=== PATIENT | female | born 1950 | race Caucasian/White ===

== ENCOUNTER → 2017-01-08 | Outpatient (CLI) | payer BC ==
[2016-06-21 07:49] VITALS: BP 141/73
[~2017-01-08] MED LIST: BENZ100C15 PO; CIPR500T94 PO; DULO60CA44 PO; FLUT16SP21 NS; HYDR-2762 PO; IBUP800T19 PO; METR500T PO; OMEP40CA2 PO; PREG150C PO; SIMV40TA3 PO; SUCR1ORA5 PO; ZOLP10TA PO
--- NOTE | 2017-01-12 13:37 | RAD ---
EXAM: DIGITAL SCREEN BILAT W/CAD. HISTORY: Screening. COMPARISON: Screening mammogram from [facility] 01/24/2011 which does not include the left CC view. FINDINGS: Digital mammography was performed. Computer-aided detection (CAD) was utilized. The breast parenchyma is heterogeneously dense, which could reduce sensitivity of mammography (tissue density C). No dominant suspicious mass, suspicious microcalcifications, or architectural distortion is identified. Several benign-appearing calcifications are present in both breasts. IMPRESSION: No mammographic evidence of malignancy. BI-RADS CATEGORY: 2 BENIGN FINDING(S) RECOMMENDED FOLLOW-UP: 12M 12 MONTH FOLLOW-UP PQRS compliance statement: Patient information was entered into a reminder system with a target due date for the next mammogram. Mammography is a sensitive method for finding small breast cancers, but it does not detect them all and is not a substitute for careful clinical examination. A negative mammogram does not negate a clinically suspicious finding and should not result in delay in biopsying a clinically suspicious abnormality. "Our facility is accredited by the [employer] Mammography Program."
== END | disposition home or self-care (01) ==
LOC: MAMMO 14:41
PROVIDERS: ATTEND Nurse Practitioner Adult Health
DX: Z12.31 Encounter for screening mammogram for malignant neoplasm of breast (principal)
CPT/HCPCS: G0202; 77067

== ENCOUNTER → 2018-03-10 | Outpatient (CLI) | payer MEDICARE ==
[2016-06-21 07:49] VITALS: BP 141/73
[~2018-03-10] MED LIST changes: +BENZ-8 PO; -BENZ100C15 PO
--- NOTE | 2018-03-10 16:23 | RAD ---
Pelvic ultrasound, 03/10/2018: HISTORY: Right lower quadrant pain Transabdominal and transvaginal scans were obtained. The uterus is surgically absent. The right ovary measures 4.4 x 3.9 x 2.7 cm. It is largely replaced by a 4.2 cm septated cystic process. The septae are mildly thickened. There is color flow in the presumed septae. A cluster of ovarian cyst could also give this appearance. Correlation with a CT study from 06/19/2016 shows a similar low-density right ovarian mass measuring 4.2 cm in craniocaudad extent. The left ovary measures 2.3 x 2.7 x 2.0 cm. It contains multiple small simple cysts. The largest of these measures 1.2 cm. There is blood flow in the left ovary. No other pelvic mass is seen. No free fluid is evident in the pelvis. IMPRESSION: 1. Status post hysterectomy. 2. Small simple cysts in the left ovary. 3. Septated cystic right ovarian lesion suggesting a cystadenoma, although cystadenocarcinoma cannot be excluded. Its lack of definite change since the 06/19/2016 CT study favors a benign etiology. Further sonographic surveillance is suggested. Electronically signed by: Lyle Gipson MD (03/10/2018 4:19 PM) [facility]
== END | disposition home or self-care (01) ==
LOC: US 09:57
PROVIDERS: ATTEND Family Medicine
DX: N83.291 Other ovarian cyst, right side (principal); N83.292 Other ovarian cyst, left side; Z90.710 Acquired absence of both cervix and uterus; Z79.899 Other long term (current) drug therapy
CPT/HCPCS: 76830; 76856

== ENCOUNTER 2018-11-16 09:26 | Emergency (ER) | payer MEDICARE ==
[~2018-11-16] VITALS: Ht 168.9 cm; Wt 89.0 kg
[~2018-11-16 09:26] MED LIST changes: -HYDR-2762 PO; +HYDR-2765 PO
[2018-11-16] MEDS ORDERED: IV NORMAL SALINE 1,000ML 1,000 ML IV ONE (10:00)
--- NOTE | 2018-11-16 10:06 | PHYS DOC ---
Past History Past Medical History: Depression, GERD, High Cholesterol, Other Past Surgical History: Hysterectomy, Other Alcohol Use: Occasionally Drug Use: None Adult General Chief Complaint Chief Complaint: CONSTIPATION HPI HPI 68-year-old female presents with constipation. The patient states she has not had a bowel movement in one week. She went to her PCPs office 2 days ago and he recommended Dulcolax and an enema. She did take 4 Ducolax pills on Wednesday. Yesterday she did an enema, 1 dose of MiraLAX, and 2 more Dulcolax. She has diffuse abdominal pain and cramping. She has developed low back pain this morning. Patient denies nausea or vomiting. He is only been eating a liquid diet the last 2 days. The patient drinks less than 24 ounces of water per day. She has had flatulence. She denies fever or chills. Review of Systems Review of Systems Constitutional: Denies fever or chills [] Eyes: Denies change in visual acuity, redness, or eye pain [] HENT: Denies nasal congestion or sore throat [] Respiratory: Denies cough or shortness of breath [] Cardiovascular: No additional information not addressed in HPI [] GI: Abdominal pain,[] : Denies dysuria or hematuria [] Musculoskeletal: Low back pain[] Integument: Denies rash or skin lesions [] Neurologic: Denies headache, focal weakness or sensory changes [] Endocrine: Denies polyuria or polydipsia [] All other systems were reviewed and found to be within normal limits, except as documented in this note. Current Medications Current Medications Current Medications Medications (Trade) Dose Ordered Sig/[place] Start Time Stop Time Status Last Admin Dose Admin Sodium Chloride 1,000 ml @ 1,000 mls/hr 1X ONCE 11/16/18 10:00 11/16/18 10:59 UNV Allergies Allergies Allergies Coded Allergies Type Severity Reaction Last Updated Verified oxaprozin Allergy Intermediate 11/16/18 Yes Physical Exam Physical Exam Constitutional: Well developed, well nourished, no acute distress, non-toxic appearance. [] HENT: Normocephalic, atraumatic, bilateral external ears normal, oropharynx moist, no oral exudates, nose normal. [] Eyes: PERRLA, EOMI, conjunctiva normal, no discharge. [] Neck: Normal range of motion, no tenderness, supple, no stridor. [] Cardiovascular:Heart rate regular rhythm, no murmur [] Lungs & Thorax: Bilateral breath sounds clear to auscultation [] Abdomen: Diffuse tenderness with guarding.[] Skin: Warm, dry, no erythema, no rash. [] Back: No tenderness, no CVA tenderness. [] Extremities: No tenderness, no cyanosis, no clubbing, ROM intact, no edema. [] Neurologic: Alert and oriented X 3, normal motor function, normal sensory function, no focal deficits noted. [] Psychologic: Affect normal, judgement normal, mood normal. [] Current Patient Data Vital Signs Vital Signs Date Time Temp Pulse Resp B/P (MAP) Pulse Ox O2 Delivery O2 Flow Rate FiO2 11/16/18 09:34 98.2 101 18 98 Room Air EKG EKG [] Radiology/Procedures Radiology/Procedures [] Impressions: KUB, 11/16/2018: HISTORY: Abdominal pain, constipation There is retained barium predominantly in the descending colon and sigmoid colon from a previous upper GI exam. Diverticula are evident in the sigmoid region. Gas is present in other loops of large and small bowel in a nonspecific pattern. There is no evidence organomegaly. Scattered degenerative changes are present in the spine. IMPRESSION: 1. Retained barium in the left colon from a recent upper GI exam. 2. Colonic diverticulosis. Electronically signed by: Lyle Gipson MD (11/16/2018 10:45 AM) [facility] DICTATED AND SIGNED BY: LYLE GIPSON MD DATE: 11/16/18 1045 CC: GISELLE BONILLA DO; EDITH GARIBAY MD ~ Course & Med Decision Making Course & Med Decision Making Pertinent Labs and Imaging studies reviewed. (See chart for details) His labs are unremarkable. Her KUB does show stool in the descending colon. We gave one bottle of magnesium citrate. She did not have a stool in the ED. She will likely have a stool next 12 hours. She is stable for discharge at this time. [] Dragon Disclaimer Dragon Disclaimer This electronic medical record was generated, in whole or in part, using a voice recognition dictation system. Departure Departure: Impression: Primary Impression: Constipation by delayed colonic transit Additional Impression: Diverticulosis Disposition: 01 HOME, SELF-CARE Condition: STABLE Referrals: EDITH GARIBAY MD (PCP) Patient Instructions: Constipation, Adult, [id number] Problem Qualifiers GISELLE BONILLA DO Nov 16, 2018 10:06
[2018-11-16] MEDS ORDERED: KETOROLAC 30 MG/ML VIAL. IV ONE (10:15)
[2018-11-16 10:16] LABS: BASO % 1 % (0-3); EOS % 0 % (0-3); HEMATOCRIT 43.6 % (36.0-47.0); HEMOGLOBIN 14.4 g/dL (12.0-15.5); LYMPH # 0.6 x10^3/uL (1.0-4.8); LYMPH % 8 % (24-48); MEAN CORPUSCULAR HEMOGLOBIN 30 pg (25-35); MEAN CORPUSCULAR HGB CONC 33 g/dL (31-37); MEAN CORPUSCULAR VOLUME 90 fL (79-100); MONO # 0.5 x10^3/uL (0.0-1.1); MONO % 7 % (0-9); NEUT # 6.2 x10^3uL (1.8-7.7); NEUT % 84 % (31-73); PLATELET COUNT 173 x10^3/uL (140-400); RED BLOOD COUNT 4.86 x10^6/uL (3.50-5.40); RED CELL DISTRIBUTION WIDTH 15.4 % (11.5-14.5); WHITE BLOOD COUNT 7.3 x10^3/uL (4.0-11.0)
[2018-11-16] MEDS ORDERED: IOHEXOL 300 MG/ML 75 ML VIAL. IV ONE (10:45)
--- NOTE | 2018-11-16 10:49 | RAD ---
BENITO, 11/16/2018: HISTORY: Abdominal pain, constipation There is retained barium predominantly in the descending colon and sigmoid colon from a previous upper GI exam. Diverticula are evident in the sigmoid region. Gas is present in other loops of large and small bowel in a nonspecific pattern. There is no evidence organomegaly. Scattered degenerative changes are present in the spine. IMPRESSION: 1. Retained barium in the left colon from a recent upper GI exam. 2. Colonic diverticulosis. Electronically signed by: Lyle Gipson MD (11/16/2018 10:45 AM) [facility]
[2018-11-16 11:01] LABS: ALBUMIN 3.2 g/dL (3.4-5.0); ALBUMIN/GLOBULIN RATIO 0.9 (1.0-1.7); CALCIUM 8.6 mg/dL (8.5-10.1); CREATININE 0.7 mg/dL (0.6-1.0); GFR 83.7; TOTAL BILIRUBIN 0.7 mg/dL (0.2-1.0); TOTAL PROTEIN 6.6 g/dL (6.4-8.2)
[2018-11-16] MEDS ORDERED: ONDANSETRON PF 4 MG/2 ML VIAL. IV ONE (11:30)
[2018-11-16] MEDS ORDERED: MAGNESIUM CITRATE 296 ML SOLUTION. PO ONE (11:30)
[2018-11-16 13:53] VITALS: BP 138/83
== END 2018-11-16 13:56 | disposition home or self-care (01) ==
LOC: ER 09:26
DX: K57.30 Diverticulosis of large intestine without perforation or abscess without bleeding (principal); K59.01 Slow transit constipation; F32.9 Major depressive disorder, single episode, unspecified; K21.9 Gastro-esophageal reflux disease without esophagitis; E78.00 Pure hypercholesterolemia, unspecified; Z90.710 Acquired absence of both cervix and uterus; Z88.8 Allergy status to other drugs, medicaments and biological substances
CPT/HCPCS: 99284; J1885; J2405; 36415; 74018; 80053; 85025; 96361; 96374; 96375; J7030

== ENCOUNTER 2018-11-18 09:12 | Inpatient (IN) | payer MEDICARE ==
[~2018-11-18] VITALS: Ht 167.6 cm; Wt 80.5 kg
[2018-11-18 09:40] VITALS: BP 125/72
[2018-11-18 10:00] LABS: BASO # 0.1 x10^3/uL (0.0-0.2); BASO % 1 % (0-3); EOS % 0 % (0-3); HEMATOCRIT 40.7 % (36.0-47.0); HEMOGLOBIN 13.6 g/dL (12.0-15.5); LYMPH # 0.5 x10^3/uL (1.0-4.8); LYMPH % 4 % (24-48); MEAN CORPUSCULAR HEMOGLOBIN 30 pg (25-35); MEAN CORPUSCULAR HGB CONC 33 g/dL (31-37); MEAN CORPUSCULAR VOLUME 90 fL (79-100); MONO # 1.4 x10^3/uL (0.0-1.1); MONO % 10 % (0-9); NEUT # 11.6 x10^3uL (1.8-7.7); NEUT % 85 % (31-73); PLATELET COUNT 203 x10^3/uL (140-400); RED BLOOD COUNT 4.54 x10^6/uL (3.50-5.40); RED CELL DISTRIBUTION WIDTH 15.1 % (11.5-14.5); WHITE BLOOD COUNT 13.6 x10^3/uL (4.0-11.0)
[2018-11-18 10:18] LABS: ALBUMIN 3.4 g/dL (3.4-5.0); ALBUMIN/GLOBULIN RATIO 0.9 (1.0-1.7); CALCIUM 8.8 mg/dL (8.5-10.1); CREATININE 0.8 mg/dL (0.6-1.0); GFR 71.8; POTASSIUM 4.5 mmol/L (3.5-5.1); TOTAL BILIRUBIN 0.7 mg/dL (0.2-1.0); TOTAL PROTEIN 7.1 g/dL (6.4-8.2)
[2018-11-18] MEDS: IV 1/2 NORMAL SALINE 1,000 ML IV SCH ×2 (10:36→20:04)
[2018-11-18] MEDS: KETOROLAC 30 MG/ML VIAL. IV PRN ×2 (10:37→17:42)
--- NOTE | 2018-11-18 10:53 | RAD ---
BENITO, 11/18/2018: HISTORY: Constipation Comparison is made to a study from 11/16/2018. There is retained contrast throughout the colon extending from the cecum to the distal sigmoid. The amount of contrast has increased suggesting an additional interval contrast exam. Multiple colonic diverticula are evident, most numerous in the sigmoid region. Gas is present in small bowel loops in a nonspecific pattern. There is no evidence organomegaly. IMPRESSION: 1. Increasing retained contrast throughout the colon. 2. Colonic diverticulosis. Electronically signed by: Lyle Gipson MD (11/18/2018 10:50 AM) [facility]
[2018-11-18] MEDS ORDERED: CALC200T3 PO (11:43)
[2018-11-18] MEDS ORDERED: RANI150T21 PO (11:43)
--- NOTE | 2018-11-18 11:44 | NUR ---
NSG NOTE; ADMISSION DIRECT ADMIT TO ROOM 119 AT 0930 VIA W/C ACCOMP BY . FROM DR GARIBAY'S OFFICE C/O INCREASING CONSTIPATION, BLOATING ABD PAIN X 8 DAYS. LBM 11/08
[2018-11-18 13:07] LABS: BILIRUBIN,URINE NEG (NEG); CLARITY,URINE HAZY; COLOR,URINE YELLOW; GLUCOSE,URINE NEG (NEG)
[2018-11-18 13:08] LABS: BACTERIA,URINE FEW /HPF (0-FEW); GRANULAR CASTS,URINE OCC /HPF; HYALINE CASTS, URINE OCC /HPF; NITRITE,URINE NEG (NEG); SQUAMOUS EPITHELIAL CELL,UR MANY /LPF; UROBILINOGEN,URINE 0.2 mg/dL (0.2 mg/dL)
[2018-11-18] MEDS: ONDANSETRON PF 4 MG/2 ML VIAL. IV PRN ×2 (13:11→20:04)
[2018-11-18 15:25] VITALS: BP 132/77
--- NOTE | 2018-11-18 19:31 | HP ---
ADMIT DATE: 11/18/2018 HISTORY OF PRESENT ILLNESS: A 68-year-old female in with exacerbation of abdominal pain. She has been having this for some time. She has been in and out of the Emergency Room and unable to get any help. White count was elevated at 13,000. Some nausea, no vomiting, but unable have a bowel movement for the last week. The patient is also markedly dehydrated. As a result of this, the patient was admitted to the hospital for further evaluation and treatment of her bowel obstruction and obstipation at least, unable to do CT scan because of barium. PAST MEDICAL HISTORY: Hypercholesterolemia, history of diverticulitis, abdominal surgery, gastric fundoplication, pancreatic surgery, GERD, hysterectomy, fibromyalgia, orthopedic knee surgery, joint replacement, depression. The patient has also had diphtheria tetanus and pneumococcal vaccinations are up-to-date. FAMILY HISTORY: Peripheral vascular disease in brother. Mother with osteoporosis. Brother with hypertension as well as the father and mother. Stroke in the father, the father has also had problems with stroke. ALLERGIES: OXAPROZIN. MEDICATIONS: Listed in the reconciliation note and noted hose were for them including Zocor, Lyrica one tablet b.i.d., calcium and Zantac. The patient is a full code. SOCIAL HISTORY: Denies smoking, alcohol or drug use. REVIEW OF SYSTEMS: The patient denies any headaches, visual change, blurred vision, double vision. Denies any melena, hematochezia, or hematemesis. Neurologically, the patient was alert and oriented x 3. PHYSICAL EXAMINATION: GENERAL: Pleasant white female, moderate amount of pain. VITAL SIGNS: Blood pressure 125/72, respiratory rate 18, pulse 110, afebrile, oxygen saturation good. HEENT: The patient's head was atraumatic, normocephalic. Eyes: PERRLA without jaundice. Mouth and throat were normal. NECK: Supple, no JVD or thyromegaly. LUNGS: Diminished throughout, poor movement of air. CARDIOVASCULAR: Regular sinus rhythm, S1, S2, without murmur, rub, thrill, or extra heart sound. ABDOMEN: Soft, diffuse, bloated, but tenderness in the left lower quadrant area, but no rebounding or guarding. Positive bowel sounds, no hepatosplenomegaly. EXTREMITIES: No clubbing, cyanosis, or edema. The rectal vault was negative for stool. NEUROLOGIC: The patient was alert and oriented x 3. pericardial nerves 2-12 are grossly intact. PLAN: The patient will be admitted for further evaluation of bowel obstruction, possible obstipation, constipation. We will need to try to get her evacuate before we can do a CT scan of her abdomen and pelvis. IMPRESSION: As noted above. Also, dehydration. EDITH GARIBAY MD DR: MARISELA/ana laura JOB#: [id number] / [id number]
[2018-11-18 20:05] VITALS: BP_SYST 147; BP_SYST 47; BP_DIAS 76
[2018-11-18 23:10] VITALS: BP 160/82
[2018-11-18] MEDS ORDERED: SODIUM PHOSPHATES 19/7GM 133 ML ENEMA. PR ONE (23:45)
[2018-11-19] MEDS: KETOROLAC 30 MG/ML VIAL. IV PRN ×2 (00:56→09:27)
[2018-11-19 05:35] VITALS: BP 126/76
[2018-11-19] MEDS: IV 1/2 NORMAL SALINE 1,000 ML IV SCH ×2 (05:45→15:45)
[2018-11-19 07:49] LABS: BASO % 1 % (0-3); EOS % 0 % (0-3); HEMATOCRIT 35.5 % (36.0-47.0); LYMPH # 0.5 x10^3/uL (1.0-4.8); LYMPH % 5 % (24-48); MEAN CORPUSCULAR HEMOGLOBIN 30 pg (25-35); MEAN CORPUSCULAR HGB CONC 34 g/dL (31-37); MEAN CORPUSCULAR VOLUME 89 fL (79-100); MONO # 0.9 x10^3/uL (0.0-1.1); MONO % 10 % (0-9); NEUT % 84 % (31-73); PLATELET COUNT 187 x10^3/uL (140-400); RED BLOOD COUNT 3.99 x10^6/uL (3.50-5.40); RED CELL DISTRIBUTION WIDTH 15.2 % (11.5-14.5); WHITE BLOOD COUNT 9.5 x10^3/uL (4.0-11.0)
[2018-11-19] MEDS: ONDANSETRON PF 4 MG/2 ML VIAL. IV PRN (09:26)
[2018-11-19 10:59] VITALS: BP 128/68
[2018-11-19] MEDS ORDERED: ZOLPIDEM 5 MG TABLET. PO PRN (14:15)
[2018-11-19 15:31] VITALS: BP 115/83
[2018-11-19] MEDS ORDERED: miSOPROStol 100 MCG TABLET PO ONE (16:00)
[2018-11-19] MEDS: PREGABALIN 75 MG CAPSULE PO SCH ×2 (16:39→21:26)
[2018-11-19] MEDS: metroNIDAZOLE 500 MG TABLET PO SCH ×2 (16:39→21:26)
[2018-11-19] MEDS: miSOPROStol 100 MCG TABLET PO SCH ×2 (18:41→23:02)
[2018-11-19 21:04] VITALS: BP 120/59
[2018-11-19] MEDS ORDERED: SODIUM PHOSPHATES 19/7GM 133 ML ENEMA. PR ONE (22:00)
--- NOTE | 2018-11-19 22:16 | PN ---
DATE: 11/19/2018 SUBJECTIVE: The patient still with abdominal pain, having trouble getting enemas as well as mineral oil for the patient. Still having abdominal pain. Had a low grade temperature of 99.1, started her on IV Flagyl. The patient otherwise still complaining of abdominal pain. She had small results with the multiple laxatives that we have given her. She is probably impacted, otherwise. OBJECTIVE: VITAL SIGNS: Blood pressure 115/83, respiratory rate 20, pulse of 105. LUNGS: Clear. CARDIOVASCULAR: Stable. ABDOMEN: Soft, but definite tenderness in that transverse and descending colon. PLAN: We will go ahead and continue with IV fluids, IV antibiotic therapy and make further evaluation on her and try to continue with Fleet Enema or soapsuds enemas; however, we can get those into the patient. EDITH GARIBAY MD DR: MARISELA/ana laura JOB#: [id number] / [id number]
[2018-11-19] MEDS ORDERED: CALCIUM CARBONATE 500 MG TAB.CHEW PO PRN (23:15)
[2018-11-20] MEDS: IV 1/2 NORMAL SALINE 1,000 ML IV SCH ×3 (04:10→21:34)
[2018-11-20] MEDS: metroNIDAZOLE 500 MG TABLET PO SCH ×3 (05:56→21:35)
[2018-11-20] MEDS: ONDANSETRON PF 4 MG/2 ML VIAL. IV PRN ×2 (06:35→17:56)
[2018-11-20 06:54] VITALS: BP 79/99
[2018-11-20] MEDS: PREGABALIN 75 MG CAPSULE PO SCH ×2 (09:00→19:47)
[2018-11-20] MEDS ORDERED: MAG HYDROX/AL HYDROX/SIMETH 30 ML ORAL.SUSP PO PRN (10:00)
[2018-11-20] MEDS: miSOPROStol 100 MCG TABLET PO SCH ×4 (10:16→19:47)
[2018-11-20] MEDS: LACTOBACILLUS RHAMNOSUS GG 1 CAPSULE. PO SCH ×2 (10:16→19:46)
[2018-11-20] MEDS: KETOROLAC 30 MG/ML VIAL. IV PRN ×2 (10:17→18:28)
[2018-11-20 10:41] VITALS: BP 107/66
[2018-11-20 14:48] VITALS: BP 111/72
[2018-11-20] MEDS ORDERED: MAGNESIUM CITRATE 296 ML SOLUTION. PO ONE (17:00)
[2018-11-20 19:36] VITALS: BP 136/73
--- NOTE | 2018-11-20 21:05 | PN ---
DATE: SUBJECTIVE: A 68-year-old female in for her bowel obstruction, obstipation. The patient's abdomen still shows a large amount of retained barium in her colon. She is having abdominal pain, although she is passing a little bit of gas and despite the use of multiple enemas, she has only had very small amount of stool. We will give her some mineral oil and also give her some castor oil. The patient was running a temperature that is afebrile now. OBJECTIVE: VITAL SIGNS: Blood pressure 120/60, respiratory rate 20, pulse 95. Presently afebrile. GENERAL: The patient is alert and oriented. LUNGS: Clear. CARDIOVASCULAR: Regular sinus rhythm. ABDOMEN: Soft. There is definite bowel sounds noted, much more active than they have been. EXTREMITIES: No clubbing, cyanosis, or edema. NEUROLOGIC: Intact. IMPRESSION: Therefore of bowel obstruction, obstipation, possible diverticulitis. PLAN: Continue with IV antibiotic therapy, mineral oil, castor oil, enemas as needed. She also has bad case of GERD. We will continue to monitor on that as well. EDITH GARIBAY MD DR: MARISELA/ana laura JOB#: [id number] / [id number]
[2018-11-20] MEDS ORDERED: BISACODYL TAB 5 MG TABLET.DR. PO ONE (21:45)
[2018-11-20 22:36] VITALS: BP 129/75
[2018-11-21] MEDS: metroNIDAZOLE 500 MG TABLET PO SCH (04:55)
[2018-11-21 06:09] VITALS: BP 152/77
[2018-11-21] MEDS: IV 1/2 NORMAL SALINE 1,000 ML IV SCH (06:09)
[2018-11-21] MEDS: ONDANSETRON PF 4 MG/2 ML VIAL. IV PRN (08:47)
[2018-11-21] MEDS: KETOROLAC 30 MG/ML VIAL. IV PRN (08:47)
[2018-11-21] MEDS: miSOPROStol 100 MCG TABLET PO SCH (09:00)
[2018-11-21] MEDS: LACTOBACILLUS RHAMNOSUS GG 1 CAPSULE. PO SCH (09:00)
[2018-11-21] MEDS: PREGABALIN 75 MG CAPSULE PO SCH (09:00)
--- NOTE | 2018-11-21 10:56 | NUR ---
NSG NOTE; TRANSFER TO [facility] AT 1055 VIA CART ACCOMP BY EMS PERSONNEL REPORT CALLED TO RN PT NEEDS GI CONSULT
--- NOTE | 2018-12-08 09:09 | DS ---
DATE OF DISCHARGE: 11/21/2018 HOSPITAL COURSE: A 68-year-old female came in with severe abdominal pain. The patient's CT scan demonstrated a form of colitis. This was done as initially as an outpatient. She was treated as an outpatient; however, she became increasingly worse. The patient was admitted for IV antibiotic therapy and the like. The patient did not make much progress. Her previous scans had showed she had severe moderately extensive diverticular disease seen associated with the sigmoid colon and the like. She was placed on metronidazole. She was given variety of laxatives because she was also constipated. The patient otherwise was transferred down to [place] because we did have GI consult coverage here at this facility, so she was transferred down there for over a GI consult because of the continued abdominal pain and the like. She also had a low grade temperature and it was another reason to put her on the IV antibiotic therapy. In any case, she made good progress here. She was stable and then transferred down to [facility]. IMPRESSION: Therefore, colitis of the large bowel, constipation, abdominal pain. See MRAD and transfer her as indicated down to [facility]. EDITH GARIBAY MD DR: MARISELA/ana laura JOB#: [id number] / [id number]
== END 2018-11-21 10:55 | disposition short-term general hospital (02) | DRG 389 ==
LOC: 1 SOUTH 09:12
PROVIDERS: ADMIT Family Medicine; ATTEND Family Medicine
DX: K56.609 Unspecified intestinal obstruction, unspecified as to partial versus complete obstruction (principal); E87.1 Hypo-osmolality and hyponatremia; K57.92 Diverticulitis of intestine, part unspecified, without perforation or abscess without bleeding; M79.7 Fibromyalgia; K59.00 Constipation, unspecified; K21.9 Gastro-esophageal reflux disease without esophagitis; E78.00 Pure hypercholesterolemia, unspecified; F32.9 Major depressive disorder, single episode, unspecified; E86.0 Dehydration; Z82.49 Family history of ischemic heart disease and other diseases of the circulatory system; Z82.3 Family history of stroke; Z90.710 Acquired absence of both cervix and uterus; Z82.62 Family history of osteoporosis; Z88.8 Allergy status to other drugs, medicaments and biological substances
CPT/HCPCS: 36415; 74018; 80053; 81001; 83605; 83690; 84443; 85025; J1885; J2405; J7030

== ENCOUNTER 2019-02-05 16:46 | Emergency (ER) | payer OTHER, MEDICARE ==
[~2019-02-05 16:46] MED LIST changes: +CALC200T3 PO; +RANI-376 PO
[2019-02-05 17:07] VITALS: BP 130/75
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
== END 2019-02-05 17:40 | disposition home or self-care (01) ==
LOC: ER 16:46
DX: S80.01XA Contusion of right knee, initial encounter (principal); E78.00 Pure hypercholesterolemia, unspecified; Z96.651 Presence of right artificial knee joint; Z88.8 Allergy status to other drugs, medicaments and biological substances; V49.49XA Driver injured in collision with other motor vehicles in traffic accident, initial encounter; Y93.I9 Activity, other involving external motion; Y92.89 Other specified places as the place of occurrence of the external cause; Y99.8 Other external cause status
CPT/HCPCS: 73562; 99284

== ENCOUNTER 2020-05-03 11:43 | Emergency (ER) | payer OTHER, MEDICARE ==
[~2020-05-03] VITALS: Ht 168.9 cm; Wt 81.6 kg
[~2020-05-03 11:43] MED LIST changes: -DULO60CA44 PO; +DULO60CA98 PO; +SIMV40TA18 PO; -SIMV40TA3 PO
--- NOTE | 2020-05-03 11:49 | PHYS DOC ---
Past History Past Medical History: Diverticulitis, High Cholesterol Past Surgical History: Hysterectomy, Knee Replacement Alcohol Use: None Drug Use: None General Adult EDM: Chief Complaint: NEAR SYCOPE HPI: HPI: 69-year-old female past medical history significant for hyperlipidemia, diverticulitis and fibromyalgia, presents to the ED with complaints of near syncope while patient was at her eye clinic. Pt states she felt very hot and flushed, dizzy, was seeing spots and new she needs to sit down. She had not had any procedures or medications given but had blood drawn for "bacteria?." Pt states she recently saw her physician this week for a rash over her left cheek/face, unclear if rash is shingles versus superficial skin infection. Was started on a antiviral a few days ago and keflex yesterday. EMS reports her initial blood pressure was 60/30 with a heart rate in the upper 50s. Patient reports her blood pressure usually runs in the 50s or 60s. 200 cc of NS given prior to ED arrival. Pt with no potential on arrival. States she is at the eye clinic to evaluate if rash involved her eye. Father with history of coronary artery disease. No family history of sudden under the age of 50, connective tissue disorder, or aortic disease. Patient with no prior h/o cardiac disease. Had an unsuccessful stress test due to dizziness, ordered because of her family history. No h/o DVT/PT, recent surgery/immobilization/estrogen use. No head injury or vertigo. Had a cupcake and some water this morning. ROS: Denies any associated blurry vision, headache, neck stiffness, chest pain or pressure, hemoptysis, dyspnea, leg swelling. Review of Systems: Review of Systems: Constitutional: Denies fever or chills Eyes: Denies change in visual acuity HENT: Denies nasal congestion or sore throat Respiratory: Denies cough or shortness of breath Cardiovascular: Denies chest pain or edema GI: Denies abdominal pain, nausea, vomiting,or diarrhea : Denies dysuria, hematuria Musculoskeletal: Denies back pain or joint pain Integument: Denies rash Neurologic: Denies headache, focal weakness or sensory changes Endocrine: Denies polyuria or polydipsia Lymphatic: Denies swollen glands Psychiatric: Denies depression or anxiety Heart Score: Risk Factors: Risk Factors: DM, Current or recent (<one month) smoker, HTN, HLP, family history of CAD, obesity. Risk Scores: Score 0 - 3: 2.5% MACE over next 6 weeks - Discharge Home Score 4 - 6: 20.3% MACE over next 6 weeks - Admit for Clinical Observation Score 7 - 10: 72.7% MACE over next 6 weeks - Early Invasive Strategies Allergies: Allergies: Allergies Coded Allergies Type Severity Reaction Last Updated Verified oxaprozin Allergy Intermediate 11/16/18 Yes Physical Exam: PE: Constitutional: Well developed, well nourished, no acute distress, non-toxic appearance, normotensive on arrival HENT: Normocephalic, atraumatic, bilateral external ears normal, both TMs covered with cerumen, small patches of scabs over lateral left cheek, upper and outer left lip, nasal wing, normal mucous membranes Eyes: PERRLA, EOMI, conjunctiva normal, wood lamp exam of left eye shows no corneal uptake of fluorescein Neck: Normal range of motion, supple, ] Cardiovascular:Heart rate regular rhythm, no murmur [] Lungs & Thorax: Bilateral breath sounds clear to auscultation [] Abdomen: Bowel sounds normal, soft, no tenderness, no masses, no pulsatile masses. [] Skin: Warm, dry, no erythema, no rash. [] Back: No tenderness, Extremities: No tenderness, no cyanosis, no clubbing, ROM intact, no edema. [] Neurologic: Alert and oriented X 3, normal motor function, normal sensory function, no focal deficits noted. [] Psychologic: Affect normal, judgement normal, mood normal. [] EKG: EKG: Sinus rhythm at 58 bpm, no axis deviation, normal intervals, T wave inversion lead III, no ST elevations or ST depressions Radiology/Procedures: Radiology/Procedures: IMAGING REPORT Signed PATIENT: TEJAL HAYNES ACCOUNT: [id number] : 1950 LOCATION: ER AGE: 69 SEX: F EXAM STATUS: REG ER ORD. PHYSICIAN: BRIGIDA CALDERON DO REASON: near syncope PROCEDURE: PORTABLE CHEST 1V PORTABLE CHEST 1V History: Near syncope Comparison: April 02, 2015 Findings: Single view of the chest is submitted. There is no infiltrate, pneumothorax, or effusion. The pericardial cardiac silhouette is within normal limits in size. There is atherosclerotic calcification near aortic arch. There is degenerative change of the acromioclavicular joints bilaterally. Impression: 1. There is no radiographic evidence of acute cardiopulmonary disease. Electronically signed by: Beth Lo MD (05/03/2020 12:22 PM) [id number] DICTATED AND SIGNED BY: BETH LO MD DATE: 05/03/20 1222 CC: EDITH GARIBAY MD; BRIGIDA CALDERON DO ~ Impressions: Per Buckner syncope rule, Patient IS in the low-risk group for serious outcome. Course & Med Decision Making: Course & Med Decision Making Pertinent Labs and Imaging studies reviewed. (See chart for details) Concern for near syncope, suspect some mild/moderate dehydration given renal function. Patient reports she has had these symptoms once or twice in the past. Upon ED arrival is asymptomatic. Orthostatics negative. EKG unremarkable with normal troponin. Creatinine slightly elevated at 1.1. Will have patient recheck this with her primary care physician. Encouraged outpatient cardiology follow-up given her family history. Also encouraged ophthalmology follow-up. Strict ED return precautions were given for recurrence of symptoms, chest pain or shortness of breath. Encouraged urgent outpatient follow-up with PMD and cardiology work-up as an outpatient. Life-threatening processes were considered but are low suspicion at this time, given history and physical exam. Pt was educated on all prescription medications and adverse effects. All patient's questions were answered and pt was stable at time of discharge. Differential includes abdominal aortic aneurysm, aortic dissection, acute coronary syndrome, anemia, valvular disorder, cerebrovascular accident, drug overdose or toxidrome, arrhythmia, prolonged QT syndrome, hemorrhage, heat illness, intracranial hemorrhage, infection including meningitis/encephalitis/sepsis/toxic shock/myocarditis, vertebrobasilar insufficiency, seizure, medication adverse event, illicit drug use, electrolyte disorder I spoken with the patient and her caregivers. I explained the patient's condition, diagnoses and treatment plan based on the information available to me at this time. I have answered the patient and her caregiver's questions and addressed any concerns. The patient and her caregivers have a good understan ding of patient's diagnosis, condition and treatment plan as can be expected at this point. Vital signs have been stable. Patient's condition is stable and appropriate for discharge from the emergency department. Patient will pursue further outpatient evaluation with primary care physician or other designated or consulting physician as outlined in the discharge instructions. The patient and/or caregivers are agreeable to this plan of care and follow-up instructions have been explained in detail. The patient and/or caregivers have received these instructions in written form and have expressed an understanding of the discharge instructions. The patient and/or caregivers are aware that any significant change of condition or worsening of symptoms should prompt immediate return to this or the closest emergency department or call to 911. Mateo Disclaimer: Mateo Disclaimer: This electronic medical record was generated, in whole or in part, using a voice recognition dictation system. Departure Departure: Impression: Primary Impression: Near syncope Disposition: 01 HOME/RESIDENCE PRIOR TO ADM Condition: STABLE Referrals: EDITH GARIBAY MD (PCP) Have your renal function rechecked Patient Instructions: Near-Syncope Additional Instructions: [facility] [id number] [address] Justification of Admission: Justification of Admission: Justification of Admission Dx: N/A BRIGIDA CALDERON DO May 03, 2020 11:49
[2020-05-03] MEDS ORDERED: IV NORMAL SALINE 1,000ML 1,000 ML IV ONE (12:00)
--- NOTE | 2020-05-03 12:25 | RAD ---
PORTABLE CHEST 1V History: Near syncope Comparison: April 02, 2015 Findings: Single view of the chest is submitted. There is no infiltrate, pneumothorax, or effusion. The pericardial cardiac silhouette is within normal limits in size. There is atherosclerotic calcification near aortic arch. There is degenerative change of the acromioclavicular joints bilaterally. Impression: 1. There is no radiographic evidence of acute cardiopulmonary disease. Electronically signed by: Jim Sanchez MD (05/03/2020 12:22 PM) [id number]
[2020-05-03] MEDS ORDERED: FLUORESCEIN 1MG EYE STRIP. OS ONE (12:45)
--- NOTE | 2020-05-03 13:24 | EKG ---
[address] [address] Test Date: 2020-05-03 Test Time: 11:51:04 Pat Name: TEJAL HAYNES Department: Room: Gender: F Hotel Operations Manager: : 1950 Requested By: BRIGIDA CALDERON Order Number: [id number] Reading MD: Measurements Intervals [place] Rate: 58 P: 44 MS: 162 QRS: -19 QRSD: 76 T: 14 QT: 412 QTc: 408 Interpretive Statements SINUS RHYTHM LEFTWARD AXIS R-S TRANSITION ZONE IN V LEADS DISPLACED TO THE LEFT OTHERWISE NORMAL ECG RI6.02 No previous ECG available for comparison
[2020-05-03 13:27] LABS: BASO % 1 % (0-3); EOS # 0.1 x10^3/uL (0.0-0.7); EOS % 1 % (0-3); HEMATOCRIT 45.9 % (36.0-47.0); HEMOGLOBIN 14.8 g/dL (12.0-15.5); LYMPH # 0.8 x10^3/uL (1.0-4.8); LYMPH % 12 % (24-48); MEAN CORPUSCULAR HEMOGLOBIN 31 pg (25-35); MEAN CORPUSCULAR HGB CONC 32 g/dL (31-37); MEAN CORPUSCULAR VOLUME 95 fL (79-100); MONO # 0.6 x10^3/uL (0.0-1.1); MONO % 9 % (0-9); NEUT # 5.2 x10^3uL (1.8-7.7); NEUT % 78 % (31-73); PLATELET COUNT 151 x10^3/uL (140-400); RED BLOOD COUNT 4.84 x10^6/uL (3.50-5.40); RED CELL DISTRIBUTION WIDTH 14.7 % (11.5-14.5); WHITE BLOOD COUNT 6.7 x10^3/uL (4.0-11.0)
[2020-05-03 13:46] LABS: CREATININE 1.1 mg/dL (0.6-1.0); GFR 49.5; POTASSIUM 3.7 mmol/L (3.5-5.1)
[2020-05-03 13:59] LABS: ALBUMIN 3.7 g/dL (3.4-5.0); ALBUMIN/GLOBULIN RATIO 1.1 (1.0-1.7); MAGNESIUM 2.3 mg/dL (1.8-2.4); TOTAL BILIRUBIN 0.7 mg/dL (0.2-1.0)
[2020-05-03 14:18] VITALS: BP 126/34
== END 2020-05-03 14:37 | disposition home or self-care (01) ==
LOC: ER 11:43
DX: R55 Syncope and collapse (principal); R21 Rash and other nonspecific skin eruption; E78.00 Pure hypercholesterolemia, unspecified; Z88.8 Allergy status to other drugs, medicaments and biological substances
CPT/HCPCS: 36415; 71045; 80053; 83735; 83880; 84484; 85025; 93005; 96360; 96361; 99285; J7030

== ENCOUNTER → 2021-04-23 | Outpatient (CLI) | payer MEDICARE ==
--- NOTE | 2021-04-23 11:37 | RAD ---
INDICATION: Screening for osteopenia/osteoporosis. Postmenopausal evaluation COMPARISON: None. TECHNIQUE: Bone densitometry was performed through the lumbar spine and proximal femur. IMPRESSION: Lumbar Spine: BMD: 1.06 T-Score: -0.7 Range: Lower limits of normal. There is some sclerosis at L3-4. Proximal Femur: BMD: 0.7 T-Score: -2.1 Range: Osteopenic World Health Organization Criteria for Bone Density: T-Score: > -1.0: Normal Range < -1.0 to -2.5: Osteopenic Range < -2.5: Osteoporotic Range Electronically signed by: Jay Wakefield MD (04/23/2021 11:34 AM) [id number]
--- NOTE | 2021-04-23 16:14 | RAD ---
DATE: 04/23/2021 EXAM: MAMMO DARLING SCREENING BILATERAL HISTORY: Screening COMPARISON: Multiple prior exams dating back to 01/24/2011 This study was interpreted with the benefit of Computerized Aided Detection (CAD). Breast Density: HETERO The breast parenchyma is heterogenously dense, which could reduce sensitivity of mammography. Breast parenchyma level C. FINDINGS: No mass, suspicious calcification, or architectural distortion in either breast. IMPRESSION: No evidence of malignancy. BI-RADS CATEGORY: 1 NEGATIVE RECOMMENDED FOLLOW-UP: 12M 12 MONTH FOLLOW-UP PQRS compliance statement: Patient information was entered into a reminder system with a target due date for the next mammogram. Mammography is a sensitive method for finding small breast cancers, but it does not detect them all and is not a substitute for careful clinical examination. A negative mammogram does not negate a clinically suspicious finding and should not result in delay in biopsying a clinically suspicious abnormality. "Our facility is accredited by the [employer] Mammography Program."
== END ==
LOC: MAMMO 09:57
PROVIDERS: ATTEND Nurse Practitioner Adult Health
DX: Z12.31 Encounter for screening mammogram for malignant neoplasm of breast (principal); G95.89 Other specified diseases of spinal cord; M85.88 Other specified disorders of bone density and structure, other site
CPT/HCPCS: 77063; 77067; 77080

== ENCOUNTER → 2021-08-12 | Outpatient (CLI) | payer MEDICARE ==
[~2021-08-12] MED LIST changes: +IOHEXOL 350 MG/ML 100 ML VIAL. IV ONE
[2021-08-12 09:58] LABS: CREATININE 0.8 mg/dL (0.6-1.0); GFR 71.3
--- NOTE | 2021-08-12 14:17 | RAD ---
EXAM: CT ANGIOGRAPHY OF THE ABDOMEN AND PELVIS WITH AND WITHOUT CONTRAST. HISTORY: Splenic artery aneurysm. TECHNIQUE: Computed tomographic angiography of the abdomen and pelvis was performed before and after the intravenous administration of iodinated contrast. 3-D maximum intensity projections were also per formed. One or more of the following individualized dose reduction techniques were utilized for this examination: 1. Automated exposure control. 2. Adjustment of the mA and/or kV according to patient size. 3. Use of iterative reconstruction technique. COMPARISON: 06/19/2016, 03/10/2018. FINDINGS: A rim calcified splenic artery aneurysm measures 13 x 12 mm and is unchanged. It appears co mpletely thrombosed. There is no abdominal aortic aneurysm. The iliac systems are patent without stenosis. The celiac axis, superior mesenteric artery and inferior mesenteric artery are patent. There is an ac cessory right renal artery to the lower pole. There is no renal artery stenosis bilaterally. Images of the lung bases reveal a moderate hiatal hernia. There is an adjacent surgical clip suggesti ng prior repair. Bone windows reveal no suspicious lesions. A 2.1 cm hypoattenuating lesion within hepatic segment 8 is likely a benign cyst. The gallbladder, pa ncreas, adrenal glands and spleen are unremarkable. There is a prominent splenule adjacent to the parsons creatic tail. Benign renal cysts measure up to 2.0 cm on the left. The uterus is surgically absent. A right ovarian cyst measures 3.4 x 2.9 cm. Another on the left has some rim enhancement and measures 1.8 x 1.3 cm. Sigmoid diverticulosis is moderate to severe. There is wall thickening along the involved segment wit hout surrounding inflammation. The appendix is not inflamed. There is bladder wall thickening. There is no small bowel obstruction. IMPRESSION: 1. A 13 mm distal splenic artery aneurysm has been stable since 2015 and appears completely thrombose d. 2. Bilateral ovarian cysts measure up to 3.4 cm on the right. The right lesion appears stable to slig htly increased since 2018 and is likely benign. Another 1.8 cm lesion on the left demonstrates enhanc ement along its periphery and is indeterminate. Pelvic ultrasound is recommended for further evaluati on. 3. Moderate to large hiatal hernia. 4. Sigmoid colonic wall thickening may reflect prior episodes of diverticulitis. Correlate with other data to exclude mild acute inflammation. 5. Nonfocal bladder wall thickening suggests chronic outlet obstruction or inflammation. Correlate urinalysis. Electronically signed by: Pete Philippe MD (08/12/2021 2:15 PM) [id number]
== END ==
LOC: CT 09:00
PROVIDERS: ATTEND Surgery Vascular Surgery
DX: I72.8 Aneurysm of other specified arteries (principal); K44.9 Diaphragmatic hernia without obstruction or gangrene; N28.1 Cyst of kidney, acquired; N83.201 Unspecified ovarian cyst, right side; N83.202 Unspecified ovarian cyst, left side
CPT/HCPCS: 36415; 74174; 82565; Q9967

== ENCOUNTER → 2021-08-22 | Outpatient (CLI) | payer MEDICARE ==
[~2021-08-22] MED LIST changes: -IOHEXOL 350 MG/ML 100 ML VIAL. IV ONE
--- NOTE | 2021-08-22 14:08 | RAD ---
EXAMINATION: DG UGI W/O KUB (UPPER GI SERIES) CLINICAL HISTORY: GERD, HX FUNDOPLICATION 2018 TECHNIQUE: Double contrast upper GI series performed utilizing effervescent granules followed by oral administration of thick and thin barium. - Number of Images: 35 - Fluoroscopy Time: 1.7 minutes COMPARISON: CTA abdomen and pelvis 08/04/2021, upper GI series 11/02/2018 FINDINGS: Postoperative changes related to prior fundoplication with small hiatal hernia and transdiaphragmatic herniation of the wrap into the chest. Contrast is again visualized extending into the wrap with del ayed emptying. No visualized gastroesophageal reflux despite provocative maneuvers. Remainder of the esophagus and stomach unremarkable with no evidence of abnormal mucosal pattern, ulc eration, or mass. Duodenum unremarkable. IMPRESSION: Small hiatal hernia and transdiaphragmatic herniation of the fundoplication wrap into the chest. No visualized gastroesophageal reflux. Electronically signed by: Eben Camejo DO (08/22/2021 2:05 PM) [id number]
== END ==
LOC: DXRAD 08:56
PROVIDERS: ATTEND Surgery
DX: K44.9 Diaphragmatic hernia without obstruction or gangrene (principal); K21.9 Gastro-esophageal reflux disease without esophagitis; Z87.19 Personal history of other diseases of the digestive system
CPT/HCPCS: 74240